=== PATIENT | female | born 1960 | race Hispanic/Latino ===

== ENCOUNTER 2022-01-31 07:34 | Day surgery (SDC) | payer OTHER ==
--- NOTE | 2022-01-31 08:33 | Short Stay Summary ---
Short Stay Documentation Date of service: 01/31/22 Narrative H&P: 61 yo f, self referred, has been complaining of intermittent dizziness and lightheadedness over the past few months but has had two near syncopal spells in the past few weeks. these were associated with dizziness but no cp sob or palp. the events occurred while seated, one while eating lunch in her car. no nausea vomiting or diaphoresis. pt is a current smoker but states she has no other ongoing med issues. she is not on any medications. - History Past Medical History: other (Near syncope, LBBB) Past Surgical History: No surgical history Social history: smoking - Allergies and Medications Current Medications: Allergies codeine Allergy (Verified 01/31/22 08:10) Itching Penicillins Allergy (Verified 01/31/22 08:11) Unknown Stated makes her feel weak all over Active Medications Aspirin (Aspirin Ec 325 Mg Tab) 325 mg PO ONCE ONE Stop: 01/31/22 08:17 Sodium Chloride (Nacl 0.9% 500 Ml) 500 mls @ 50 mls/hr IV DIRECT EFREN Stop: 01/31/22 18:59 - Physical exam General appearance: no acute distress HEENT: PERRLA Lungs: Clear to auscultation Heart: Regular rate, Normal S1 Extremities: no ischemia, pulses intact Neurological: Normal speech - Brief post op/procedure progress note Date of procedure: 01/31/22 Pre-op diagnosis: cardiomyopathy Post-op diagnosis: same Anesthesia: local Estimated blood loss: minimal - Hospital course Hospital course: Patient presents today for cardiac cath. Patient tolerated procedure well with no complication patient found to have no evidence of obstructive disease. Patient should be discharged home and follow-up with Dr. Hoyt and Dr. Ibrahim - Disposition Condition at discharge: Good Disposition: 01 HOME / SELF CARE / HOMELESS - Discharge Diagnoses (1) Tobacco use Status: Acute (2) History of syncope Status: Acute (3) Cardiomyopathy Status: Acute (4) Left bundle branch block Status: Acute Short Stay Discharge Plan Activity: advance as tolerated Diet: low fat, low cholesterol, low salt Wound: keep clean and dry, per your surgeon's advice Additional Instructions: Patient is scheduled for MUGA scan on 02/11/2022 at 11:30 AM in our [place] location Patient has a follow-up with Dr. Hoyt on 02/15/2022 at 2:30 PM at our [place] location Patient has an appointment with Dr. Ibrahim on 03/01/2022 at 2:30 PM at our [place] location Follow up with: PRIMARY CARE, [Primary Care Provider] - 7 Days
[2022-01-31] MEDS ORDERED: SODIUM CHLORIDE 0.9% 500 ML 500 ML IV SCH (09:00)
[2022-01-31] MEDS ORDERED: ASPIRIN EC 325 MG TAB PO SCH (09:00)
[2022-01-31 09:01] LABS: INR 0.82 (0.87-1.13)
[2022-01-31] MEDS ORDERED: NITROGLYCERIN SYRINGE 3 ML ONE (09:42)
[2022-01-31] MEDS ORDERED: HEPARIN 10,000 UNITS/10 ML VIAL ONE (09:42)
[2022-01-31] MEDS ORDERED: VERAPAMIL 5 MG/2 ML INJ ONE (09:42)
[2022-01-31] MEDS ORDERED: MIDAZOLAM 2 MG/2 ML INJ ONE (09:43)
[2022-01-31] MEDS ORDERED: HEPARIN/NS 5000 UNIT/500ML 1,000 ML IR ONE (09:43)
[2022-01-31] MEDS ORDERED: LIDOCAINE (2%) 20 MG/1 ML VIAL 20 ML MDV INFILTRATI ONE (09:44)
[2022-01-31] MEDS ORDERED: fentaNYL 100 MCG/2 ML INJ ONE (09:44)
--- NOTE | 2022-01-31 13:08 | Cardiac Catherization Report ---
DATE OF PROCEDURE: 01/31/2022 REFERRING PHYSICIAN: Mauri Hoyt M.D. INDICATIONS FOR PROCEDURE: The patient is a pleasant 61-year-old female with history of recently diagnosed cardiomyopathy, left bundle branch block, active tobacco use, apparently started on cardiac medication, has not started them, history of syncope. She is here for left heart catheterization. Risks, benefits and alternatives explained in length prior to obtaining informed consent. PROCEDURE IN DETAIL: The patient was brought to the general labor forklift operator in a postabsorptive state, prepped and draped in sterile fashion. Jon's test in right hand is normal. 2 mL of 2% lidocaine used to anesthetize the right wrist. A standard 6-Malay hydrophilic sheath used to cannulate the right radial artery via modified Seldinger technique. All exchanges performed to exchange a J-tip guidewire. JL3.5 catheter was used to engage the left main. No dampening or ventricularization. Cineangiography performed in all projections. JR4 catheter used to cross the aortic valve under fluoroscopic guidance. Left ventriculography performed in 30-degree INGRAM and 30-degree LIBERIAN projections via hand injections, catheter flushed. Manual pullback performed with continuous pressure monitoring. Catheter used to engage the right coronary. No dampening or ventricularization. Cineangiography performed in all projections. Next, catheter removed over a wire, sheath removed. Manual pressure used to achieve hemostasis. The patient tolerated the procedure well. There were no immediate complications. I directly supervised the administration of moderate sedation with fentanyl and Versed from 11:20 a.m. to 11:46 a.m. No immediate complications. DATA: The patient remained in normal sinus rhythm throughout the procedure. No significant ectopy or dysrhythmia. Aortic pressure is 120/70, LV pressure is 120, LVEDP of 18 mmHg. Left ventriculography reveals mild global left ventricular hypokinesis, likely ejection fraction of 40-45%. No evidence of aortic stenosis. CORONARY ANATOMY: This is a right dominant system. Right coronary is a moderate-sized vessel, courses AV groove, distally bifurcates into the posterior descending and posterolateral branch. Left main without significant disease, bifurcates in left anterior descending, left circumflex, no significant disease in the left and right system. Left main without significant disease, trifurcates into the LAD, ramus intermedius and left circumflex. Left circumflex without significant disease. LAD moderate-sized vessel, courses anterior groove. No significant disease. Ramus intermedius without significant disease. Scattered luminal irregularities throughout, but no obstructive disease. CONCLUSIONS: 1. No angiographic evidence of obstructive disease in this right dominant system. 2. Mild global left ventricular hypokinesis, estimated ejection fraction of 40-45%. 3. No evidence of aortic stenosis. 4. Normal LVEDP. The patient is clinically stable. Ejection fraction seems better than echocardiogram; however, we will check with a MUGA scan. Discussed with Dr. Mauri Hoyt, her primary Chief Lock Tender Operator. No recent events for the patient. The patient started on low dose losartan and carvedilol in the office. She has not been taking this. I instructed the patient that she absolutely needs to be taking this. She will also be referred to electrophysiology given syncopal spell. She is instructed to call 911 with any further episodes. Again, she is clinically stable. Smoking cessation also discussed. The results of procedure were discussed with family as well. 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 Follow up with Dr. Hoyt and Dr. Ibrahim in the office. TID: [id number] RECEIPT: [id number] ELIGIO/DESTINI
[2022-01-31 14:27] VITALS: BP 111/72
--- NOTE | 2022-02-01 17:59 | Electrocardiograph Report ---
[facility] Test Date: 2022-01-31 Test Time: 08:45:07 Pat Name: DARA DAVIS Department: Room: Gender: F Slate Cutter Operator: WILFRIDO : 1960 Requested By: LEROY ROLAND Order Number: [id number] Reading MD: Zaki Logan Measurements Intervals Walsh Rate: 66 P: 69 HI: 193 QRS: -10 QRSD: 144 T: 56 QT: 477 QTc: 498 Interpretive Statements Sinus rhythm Left bundle branch block No previous ECG available for comparison Electronically Signed On 02-01-2022 17:58:17 EDT by Zaki Logan
== END 2022-01-31 07:35 | disposition home or self-care (01) ==
LOC: CATHLABREC 07:34
PROVIDERS: ATTEND Internal Medicine
DX: I42.9 Cardiomyopathy, unspecified (principal); R55 Syncope and collapse; I44.7 Left bundle-branch block, unspecified; F17.210 Nicotine dependence, cigarettes, uncomplicated; R93.1 Abnormal findings on diagnostic imaging of heart and coronary circulation; Z79.899 Other long term (current) drug therapy; Z88.5 Allergy status to narcotic agent; Z88.0 Allergy status to penicillin; Z87.898 Personal history of other specified conditions; Z82.5 Family history of asthma and other chronic lower respiratory diseases; Z98.890 Other specified postprocedural states; Z82.49 Family history of ischemic heart disease and other diseases of the circulatory system
CPT/HCPCS: 36415; 85610; 93005; 93458; 99156; 99157; C1894; J1644; J1815; J2250; J3010; J3490; J7040; Q9967